=== PATIENT | female | born 1965 | race Caucasian/White ===

== ENCOUNTER 2018-01-31 20:14 | Inpatient (IN) | payer BC, MEDICARE, OTHER ==
[~2018-01-31] VITALS: Ht 160 cm; Wt 104.5 kg
[~2018-01-31 20:14] MED LIST: ALBU6.7H INH; ALPR-138 PO; CIPR500T2 PO; FIORTAB4 PO; LORT5TAB PO; METH2.5 PO; PRED20 PO; SOMA350T PO; TESS200C PO
[2018-01-31 20:25] VITALS: BP 121/55; PULSE 94; RESP 16; TEMP 98.4; O2SAT 97
--- NOTE | 2018-01-31 21:25 | PD ---
HPI Chief Complaint: Cardiac Complaint Time Seen by Provider: 21:13 Travel History International Travel<30 days: No Contact w/Intl Traveler<30days: No Traveled to known affect area: No History of Present Illness HPI 52-year-old female presents emergency department at the request of her taxicab dispatcher, Dr. Engle for evaluation of an abnormal loop recorder. Patient states that she has had this recorder placed for about 1 week after she was found to have a probable stroke on an MRI that was taken recently. Says she followed up in the taxicab dispatcher's office today about 1015 and the loop recorder did not show any abnormalities. according to patient, Dr. Engle's office told her that the loop recorder was demonstrating pauses up to 20 seconds at a time starting around 1149 this morning. Says she had an episode of syncope about a week ago and she went to the hospital for evaluation. Says she has persistent right chest wall pain but denies SOB. currently, she complains of excessive fatigue but says this is chronic at this point. She does not know she has sleep apnea however, neurologist suggests that she may have. According to Dr. Engle's office, there was an intent to place a pacemaker while in the hospital. PFSH Past Medical History Arthritis: Yes Asthma: Yes Anxiety: Yes (RA) Heart Rhythm Problems: No Cardiac Catheterization: Yes (pt states cath 5 yrs ago indicated blockage 40%- 50%) Cardiovascular Problems: Yes High Cholesterol: No Congestive Heart Failure: No Diabetes: No Diminished Hearing: No Hypertension: Yes Musculoskeletal: Yes (BACK PROBLEMS-CHRONIC BACK/NECK PAIN) Neurologic: No Respiratory: Yes (CHRONIC SINUSITIS) Integumentary: Yes (HAS HAD SKIN MRSA INFECTIONS) Myocardial Infarction: No Thyroid Disease: Yes : 1 Para: 1 Ovarian Cysts: Yes (JUNE - 2006) Tubal Ligation: Yes Past Surgical History Abdominal Surgery: Yes Appendectomy: Yes Coronary Artery Bypass Graft: No Hysterectomy: Yes (2004) Other Surgery: Yes (BREAST (ELECTIVE),08/2006) Social History Alcohol Use: No Tobacco Use: Yes (1 PPD) Substance Use: No Allergies-Medications (Allergen,Severity, Reaction): Coded Allergies: shellfish derived (Unverified Adverse Reaction, Severe, Hives, 01/31/18) Reported Meds & Prescriptions Reported Meds & Active Scripts Active Reported Lasix (Furosemide) 20 Mg Tab 30 Mg PO DAILY PRN Claritin (Loratadine) 10 Mg Cap 10 Mg PO DAILY Flexeril (Cyclobenzaprine HCl) 10 Mg Tab 10 Mg PO TID PRN Warfarin 2.5 Mg Tab 2.5 Mg PO DAILY Lisinopril 20 Mg Tab 20 Mg PO DAILY Percocet (Oxycodone-Acetaminophen) 10-325 mg Tab 1 Tab PO Q4H PRN Xanax (Alprazolam) 1 Mg Tab 1 Mg PO Q8H PRN Physical Exam Narrative GENERAL: Well-developed, well-nourished obese SKIN: Focused skin assessment warm/dry. HEAD: Atraumatic. Normocephalic. EYES: Pupils equal and round. No scleral icterus. No injection or drainage. ENT: No nasal bleeding or discharge. Mucous membranes pink and moist. NECK: Trachea midline. No JVD. No lymphadenopathy CARDIOVASCULAR: Regular rate and rhythm. No murmur appreciated. RESPIRATORY: No accessory muscle use. Clear to auscultation. Breath sounds equal bilaterally. GASTROINTESTINAL: Abdomen soft, non-tender, nondistended. No CVA tenderness MUSCULOSKELETAL: No obvious deformities. No clubbing. No cyanosis. No edema. NEUROLOGICAL: Awake and alert. No obvious cranial nerve deficits. Motor grossly within normal limits. Normal speech. PSYCHIATRIC: Appropriate mood and affect; insight and judgment normal. Data Data Last Documented VS Vital Signs Date Time Temp Pulse Resp B/P (MAP) Pulse Ox O2 Delivery O2 Flow Rate FiO2 01/31/18 22:01 88 Room Air 01/31/18 22:01 13 121/63 (82) 97 01/31/18 20:25 98.4 Orders Orders Electrocardiogram (01/31/18 ) B-Type Natriuretic Peptide (01/31/18 21:19) Ckmb (Isoenzyme) Profile (01/31/18 21:19) Complete Blood Count With Diff (01/31/18 21:19) Comprehensive Metabolic Panel (01/31/18 21:19) Magnesium (Mg) (01/31/18 21:19) Prothrombin Time / Inr (Pt) (01/31/18 21:19) Act Partial Throm Time (Ptt) (01/31/18 21:19) Troponin I (01/31/18 21:19) Chest, Single Ap (01/31/18 21:19) Iv Access Insert/Monitor (01/31/18 21:19) Ecg Monitoring (01/31/18 21:19) Oximetry (01/31/18 21:19) Oxygen Administration (01/31/18 21:19) Sodium Chloride 0.9% Flush (Ns Flush) (01/31/18 21:30) Place In Observation (01/31/18 ) Vital Signs (Adult) Q4H (01/31/18 22:58) Activity Oob With Assistance (01/31/18 22:58) Carpenters / Telemetry .CONTINUOUS (01/31/18 22:58) Diet Npo (02/01/18 Breakfast) Sodium Chloride 0.9% Flush (Ns Flush) (01/31/18 23:00) Sodium Chloride 0.9% Flush (Ns Flush) (02/01/18 09:00) Basic Metabolic Panel (Bmp) (02/01/18 06:00) Complete Blood Count With Diff (02/01/18 06:00) Case Management Consult (01/31/18 22:58) Naloxone Inj (Narcan Inj) (01/31/18 23:00) Consult Cardiology (01/31/18 ) Admit Order (Ed Use Only) (01/31/18 23:11) Labs Laboratory Tests Test 01/31/18 21:58 White Blood Count 7.1 TH/MM3 Red Blood Count 4.19 MIL/MM3 Hemoglobin 11.2 GM/DL Hematocrit 34.0 % Mean Corpuscular Volume 81.2 FL Mean Corpuscular Hemoglobin 26.8 PG Mean Corpuscular Hemoglobin Concent 33.0 % Red Cell Distribution Width 14.2 % Platelet Count 199 TH/MM3 Mean Platelet Volume 7.6 FL Neutrophils (%) (Auto) 55.0 % Lymphocytes (%) (Auto) 32.8 % Monocytes (%) (Auto) 9.2 % Eosinophils (%) (Auto) 2.8 % Basophils (%) (Auto) 0.2 % Neutrophils # (Auto) 3.9 TH/MM3 Lymphocytes # (Auto) 2.3 TH/MM3 Monocytes # (Auto) 0.7 TH/MM3 Eosinophils # (Auto) 0.2 TH/MM3 Basophils # (Auto) 0.0 TH/MM3 CBC Comment DIFF FINAL Differential Comment Prothrombin Time 12.8 SEC Prothromb Time International Ratio 1.3 RATIO Activated Partial Thromboplast Time 29.2 SEC Blood Urea Nitrogen 21 MG/DL Creatinine 0.68 MG/DL Random Glucose 151 MG/DL Total Protein 7.1 GM/DL Albumin 3.1 GM/DL Calcium Level 8.6 MG/DL Magnesium Level 2.0 MG/DL Alkaline Phosphatase 71 U/L Aspartate Amino Transf (AST/SGOT) 22 U/L Alanine Aminotransferase (ALT/SGPT) 30 U/L Total Bilirubin 0.2 MG/DL Sodium Level 137 MEQ/L Potassium Level 4.1 MEQ/L Chloride Level 95 MEQ/L Carbon Dioxide Level 35.3 MEQ/L Anion Gap 7 MEQ/L Estimat Glomerular Filtration Rate 92 ML/MIN Total Creatine Kinase 93 U/L Troponin I LESS THAN 0.02 NG/ML B-Type Natriuretic Peptide 21 PG/ML MDM Medical Decision Making Medical Screen Exam Complete: Yes Emergency Medical Condition: Yes Differential Diagnosis NSTEMI, angina, abnormal the precordial reading, fatigue Narrative Course 52-year-old female with a history of chronic back pain, rheumatoid arthritis, anxiety, and cervical degenerative disk disease presents emergency department at the request of her taxicab dispatcher, Dr. Engle for evaluation of an abnormal loop recorder. According to the patient the office suggested that she may have a pacemaker placed while in the hospital. Says she had the loop recorder placed after a CVA that was found on MRI earlier this month. She went to cardiology for her follow up appointment this morning around 1015a this morning and was told there was no abnormality. She then was called back and told to come to the ED for evaluation of 'pauses' on the loop recorder found around 1149a. Says she has had multiple presyncopal episodes this month with a syncopal episode resulting in hospital visit to [facility] just over 1 week ago. Currently she denies chest pain except for the existing right chest wall pain secondary to her fall from 1 week ago. Denies shortness of breath. EKG shows sinus rhythm at rate 91BPM Labs and imaging studies ordered. Vital Signs Date Time Temp Pulse Resp B/P (MAP) Pulse Ox O2 Delivery O2 Flow Rate FiO2 01/31/18 20:25 98.4 94 16 121/55 (77) [address] Engle who says she should stay for observation, NPO after midnight. Labs pending as of admission but will call if there are abnormalities in the results requiring attention. She was discussed with Dr. Floyd and admitted for observation. Physician Communication Physician Communication I spoke with Dr. Engle, her taxicab dispatcher whom suggested she be admitted for observation. He believes that her extended pauses on loop recorder may be vasovagal related but cannot completely rule out other etiologies. He suggested that she become n.p.o. after midnight for further evaluation in the morning. Diagnosis Primary Impression: Cardiac dysrhythmia Qualified Codes: I49.9 - Cardiac arrhythmia, unspecified Admitting Information Admitting Physician Requests: Observation Condition: Stable Toshia Howe Jan 31, 2018 21:25
[2018-01-31] MEDS ORDERED: SODIUM CHLORIDE 0.9% FLUSH 10 ML FLUSH IVF PRN (21:30)
[2018-01-31] MEDS ORDERED: CYCL10TA PO (21:48)
[2018-01-31] MEDS ORDERED: WARF-18 PO (21:48)
[2018-01-31] MEDS ORDERED: XANA1TAB2 PO (21:48)
[2018-01-31] MEDS ORDERED: CLAR10CA3 PO (21:48)
[2018-01-31] MEDS ORDERED: PERC10TA27 PO (21:48)
[2018-01-31] MEDS ORDERED: FURO1TAB62 PO (21:48)
[2018-01-31] MEDS ORDERED: LISI-515 PO (21:48)
[2018-01-31 22:01] VITALS: BP 121/63; PULSE 88; RESP 13; O2SAT 97
--- NOTE | 2018-01-31 22:08 | RADRPT ---
EXAM DATE/TIME: 01/31/2018 21:26 [place] COMPARISON: No previous studies available for comparison. INDICATIONS : Chest pain MEDICAL HISTORY : Hypertension. SURGICAL HISTORY : Loop recorder. ENCOUNTER: Initial ACUITY: 1 day PAIN SCORE: 8/10 LOCATION: Bilateral chest FINDINGS: A single view of the chest demonstrates the lungs to be symmetrically aerated without evidence of mas s, infiltrate or effusion. The cardiomediastinal contours are unremarkable. Osseous structures are intact. CONCLUSION: No acute disease. Alon Moraes MD on January 31, 2018 at 22:04 Board Certified Radiologist. This report was verified electronically.
[2018-01-31 22:32] LABS: AUTOMATED NEUTROPHIL # 3.9 TH/MM3 (1.8-7.7); BASOPHIL % 0.2 % (0.0-2.0); EOSINOPHIL # 0.2 TH/MM3 (0-0.4); EOSINOPHIL % 2.8 % (0.0-4.0); HEMOGLOBIN 11.2 GM/DL (11.6-15.3); LYMPH % 32.8 % (9.0-44.0); LYMPHOCYTE # 2.3 TH/MM3 (1.0-4.8); MEAN CELL VOLUME 81.2 FL (80.0-100.0); MEAN CORPUSCULAR HEMOGLOBIN 26.8 PG (27.0-34.0); MEAN PLATELET VOLUME 7.6 FL (7.0-11.0); MONO % 9.2 % (0.0-8.0); MONOCYTE # 0.7 TH/MM3 (0-0.9); PLATELET COUNT 199 TH/MM3 (150-450); RED BLOOD COUNT 4.19 MIL/MM3 (4.00-5.30); RED CELL DISTRIBUTION WIDTH 14.2 % (11.6-17.2); WHITE BLOOD COUNT 7.1 TH/MM3 (4.0-11.0)
[2018-01-31] MEDS ORDERED: SODIUM CHLORIDE 0.9% FLUSH 10 ML FLUSH IV FLUSH PRN (23:00)
[2018-01-31] MEDS ORDERED: NALOXONE HCL 0.4 MG/ML AMP IV PUSH PRN (23:00)
[2018-01-31 23:08] LABS: INTERNATIONAL NORMALIZED RATIO 1.3 RATIO; PROTHROMBIN TIME - PATIENT 12.8 SEC (9.8-11.6)
[2018-01-31 23:12] LABS: ALBUMIN 3.1 GM/DL (3.4-5.0); ALKALINE PHOSPHATASE 71 U/L (45-117); ALT (GPT) 30 U/L (10-53); AST (GOT) 22 U/L (15-37); BICARBONATE 35.3 MEQ/L (21.0-32.0); BLOOD UREA NITROGEN 21 MG/DL (7-18); CALCIUM 8.6 MG/DL (8.5-10.1); CHLORIDE 95 MEQ/L (98-107); CREATININE 0.68 MG/DL (0.50-1.00); GLOMERULAR FILTRATION RATE 92 ML/MIN (>89); GLUCOSE,RANDOM 151 MG/DL (74-106); SODIUM (NA) 137 MEQ/L (136-145); TOTAL BILIRUBIN ADULT 0.2 MG/DL (0.2-1.0); TOTAL PROTEIN 7.1 GM/DL (6.4-8.2); TROPONIN I LESS THAN 0.02 NG/ML (0.02-0.05)
[2018-01-31 23:50] VITALS: BP 136/63; PULSE 88; RESP 13; O2SAT 99
[2018-02-01] VITALS (7 sets, daily range): BP systolic 98–123; BP diastolic 54–63; PULSE 80–93; RESP 16–20; TEMP 90–98.4; O2SAT 18–98
[2018-02-01] MEDS ORDERED: FUROSEMIDE 20 MG TAB PO PRN (01:15)
[2018-02-01] MEDS ORDERED: ALPRAZolam 1 MG TAB PO PRN (01:15)
[2018-02-01] MEDS ORDERED: LISINOPRIL 20 MG TAB PO ONE (01:15)
[2018-02-01] MEDS ORDERED: CYCLOBENZAPRINE HCL 10 MG TAB PO PRN (01:15)
[2018-02-01] MEDS ORDERED: HEPARIN-D5W 25,000 U/250 ML 250 ML IV PRN (01:45)
[2018-02-01] MEDS ORDERED: RESP: ALBUTEROL 2.5 MG/IPRATROPIUM 0.5 MG NEB (PRN) NEB (02:45)
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
[2018-02-01] MEDS: HEPARIN 25,000 UNITS-D5W 250 ML - PREMIX IV PRN (03:21)
[2018-02-01] MEDS: oxyCODONE/ACETAMINOPHEN 10 MG/325 MG TAB PO PRN ×2 (03:54→13:14)
[2018-02-01] MEDS ORDERED: LISINOPRIL 20 MG TAB PO SCH (09:00)
[2018-02-01] MEDS: SODIUM CHLORIDE 0.9% FLUSH 10 ML FLUSH IV FLUSH SCH ×2 (10:03→23:46)
[2018-02-01] MEDS: LORATADINE 10 MG TAB PO SCH (10:03)
--- NOTE | 2018-02-01 10:05 | HHI.PR ---
Addendum to Inpatient Note Addendum Reason: Additional Documentation Additional Information Pt complains of chronic pain but not worsened. Denies any CP/palpitations/SOB/N/ V Tells me that she is scheduled for pacemaker placement later today On exam: laying in bed, HR rrr w no obvious murmurs. Lungs appear clear, abdomen soft NT no guarding or rebound, Moves extremities Mrs. Medley is a 52-year-old female with a complicated cardiovascular history including recent CVA 2 within the past couple of weeks (follows with Dr. Craft -on Coumadin), asthma with recent respiratory failure requiring BiPAP within the past couple of weeks, coronary artery disease status post stent placement, carotid artery disease status post left carotid endarterectomy, hypertension, and recent acute renal failure who presented to the ER on advice of cigar inspector for observation admission after 20 second pauses were noted on loop recording. Sinus pauses Cardiac dysrhythmia - NPO for pacemaker placement today - continuous cardiac telemetry to monitor for further dysrhythmia - Dr. Engle following. Recent CVA 2 - Hold Coumadin for permanent pacemaker placement - currently on heparin drip Asthma stable - Duonebs PRN Chronic back pain - on home percocet and flexeril Hypertension - on lisinopril and adjust medications according to bp trends Anemia, mild - Hgb 11.2 - monitor DVT prophylaxis - heparin gtt for now with transition back to coumadin once cleared by Antonia Wilcox MD Feb 01, 2018 10:05
--- NOTE | 2018-02-01 10:30 | MB ---
cc: Sourav Engle MD DATE: 02/01/2018 REASON FOR CONSULTATION: Evaluation of pauses on event recorder and cardiovascular status. HISTORY OF PRESENT ILLNESS: Selam Medley is a 52-year-old woman whom I have seen before, but it has been a couple of years. Both of her parents are patients of mine and she lives with her parents. She has a very complicated past medical history. The patient is known to have atherosclerotic disease. She had a stent of her right coronary artery on 09/07/2014, which was a 3.0 x 12 mm Resolute stent placed near the ostium. She has known carotid disease. She has had a previous left carotid endarterectomy on 12/08/2013 and she is known to have a totally occluded right internal carotid artery. She was hospitalized at the beginning of the month at [facility] for migraine headache and while there she had some chest pain. The chest pain she describes like a burst of pain; she had 2 episodes, one lasting 1 minute and one lasting 3-4 minutes. The pain was such that it made her want to stop and hold her breath. It was somewhat atypical. Dr. Stephens went ahead and performed a cardiac catheterization on 01/13/2018. Left main coronary artery was normal. Left anterior descending artery had 10-20% disease with bridging in the mid to distal LAD. Circumflex artery showed 10-20% disease of the first obtuse marginal branch. Right coronary artery showed a patent proximal stent and diffuse 20% mid disease. She was discharged from [facility] and then readmitted to [facility] for a stroke. MRI on 01/21/2018 showed multiple acute and subacute infarcts bilaterally in both parietal lobes and occipital lobes. She also had a tiny chronic cortical or subcortical stroke in the right posterior frontal lobe. She had multiple imaging studies. The only major finding was an occlusion of the right internal carotid artery which is a known finding. Since there was bilateral strokes, there was suspicion of cardiac emboli. A VLADIMIR was performed by Dr. Augustin which did not show any atrioseptal defect or PFO. EF was 60% with mild to moderate aortic regurgitation and mild mitral and tricuspid regurgitation. She was discharged home on warfarin. On 01/27/2018, her INR was 1.5. Her last INR was on Sunday. I do not have those results. Her INR here is only 1.3. What has provoked this admission is she has had syncope. She had syncope last Sunday night. She says she woke up, felt like a wave of nausea and dizziness lasting for just a moment and ended up on the floor. Family found her having sustained trauma and a bloody nose. Since her strokes she has described numbness in her left arm and leg, some difficulty with articulating words and some diminished balance. Her event recorder was placed only a couple weeks ago and those were faxed to my office yesterday and that showed 5 pauses, the longest of which was 20 seconds. Based on the pauses, she was instructed to come to the hospital and that is why she is here now. At the time I am seeing her, neurological symptoms are similar to what she has had. She has not had any typical angina. Her last episode of syncope was last Sunday night. MEDICATIONS: Charted. They include: 1. Lasix p.r.n. 2. Claritin 10 mg daily. 3. Flexeril 10 mg t.i.d. p.r.n. 4. Warfarin 2.5 mg daily. 5. Lisinopril 20 mg daily. 6. Percocet p.r.n. 7. Xanax p.r.n. PAST MEDICAL HISTORY: Includes coronary artery disease, carotid disease, strokes, degenerative joint disease, particularly of the spine with chronic back pain, mixed hyperlipidemia, metabolic syndrome, morbid obesity, peripheral arterial disease, prediabetes, possible rheumatoid arthritis, previous tobacco smoking, which she did not quit until 03/2014. PAST SURGICAL HISTORY: Includes her catheterization procedures, her left carotid endarterectomy, loop recorder implanted and her right coronary artery drug-eluting stent. SOCIAL HISTORY: She smoked from age 18 to age 49. She is . She lives with her Mom and Dad. REVIEW OF SYSTEMS: Significant also for some lower extremity edema. ALLERGIES: ATORVASTATIN. GEMFIBROZIL. LOVASTATIN. PRAVASTATIN. SHELLFISH. PHYSICAL EXAMINATION: GENERAL: Physical exam reveals a morbidly obese, but pleasant white female in no acute distress. VITAL SIGNS: Charted. HEENT: Unremarkable. NECK: Shows a diminished right carotid pulse. I do not hear a left carotid bruit. CHEST: Clear to auscultation. CARDIOVASCULAR EXAM: S1, S2. Regular rate and rhythm. There is a 1/6 systolic ejection murmur. ABDOMEN: Morbidly obese, soft, nontender. EXTREMITIES: No clubbing, cyanosis or edema. Peripheral pulses are intact. There is about 1+ peripheral edema. Chest x-ray is unremarkable. LABORATORY DATA: Charted: Creatinine is 0.68. Troponins less than 0.02. ASSESSMENT AND PLAN: 1. Syncope with prolonged pauses on cardiac event monitor. We will consult Dr. Fuentes for a pacemaker. 2. Coronary artery disease, presently stable. 3. Multiple strokes etiology of which is not clear. They are bilateral, but there is not any clear evidence for cardiac emboli. She has not had any fibrillation detected so far. 4. Morbid obesity with high cardiovascular risk. RECOMMENDATIONS: I am going to consult Dr. Fuentes and keep her n.p.o. for possible pacemaker later today. Her warfarin will need to be brought up to therapeutic but that can be done after her pacemaker. MD PAIGE Clayton/CARLOS , 09:41 AM , 10:28 AM
[2018-02-01 11:03] LABS: AUTOMATED NEUTROPHIL # 3.4 TH/MM3 (1.8-7.7); BASOPHIL % 0.4 % (0.0-2.0); EOSINOPHIL # 0.2 TH/MM3 (0-0.4); EOSINOPHIL % 3.2 % (0.0-4.0); HEMATOCRIT 33.5 % (35.0-46.0); HEMOGLOBIN 10.6 GM/DL (11.6-15.3); LYMPH % 36.2 % (9.0-44.0); LYMPHOCYTE # 2.4 TH/MM3 (1.0-4.8); MEAN CELL VOLUME 81.9 FL (80.0-100.0); MEAN CORPUSCULAR HEMOGLOBIN 25.9 PG (27.0-34.0); MEAN CORPUSCULAR HGB CONC 31.6 % (32.0-36.0); MEAN PLATELET VOLUME 7.6 FL (7.0-11.0); MONO % 9.1 % (0.0-8.0); MONOCYTE # 0.6 TH/MM3 (0-0.9); NEUT % 51.1 % (16.0-70.0); PLATELET COUNT 180 TH/MM3 (150-450); RED CELL DISTRIBUTION WIDTH 14.1 % (11.6-17.2); WHITE BLOOD COUNT 6.6 TH/MM3 (4.0-11.0)
[2018-02-01 11:26] LABS: BICARBONATE 38.4 MEQ/L (21.0-32.0); CALCIUM 8.8 MG/DL (8.5-10.1); CREATININE 0.59 MG/DL (0.50-1.00)
--- NOTE | 2018-02-01 20:36 | EKG ---
Date Performed: 01/31/2018 Time Performed: 20:56:11 PTAGE: 52 years EKG: Sinus rhythm NONSPECIFIC ST-T WAVE CHANGES NORMAL ECG NO PREVIOUS TRACING DOCTOR: Ander Vasquez Interpretating Date/Time 02/01/2018 20:34:54
[2018-02-01] MEDS: LISINOPRIL 20 MG TAB PO SCH (23:46)
[2018-02-02] VITALS (8 sets, daily range): BP systolic 87–141; BP diastolic 54–68; PULSE 80–102; RESP 15–24; TEMP 97.3–98.7; O2SAT 95–99
[2018-02-02] MEDS ORDERED: SODIUM CHLOR 0.9% 250 ML INJ 250 ML IV ONE (05:00)
[2018-02-02] MEDS: SODIUM CHLORIDE 0.9% FLUSH 10 ML FLUSH IV FLUSH SCH ×2 (09:00→20:10)
--- NOTE | 2018-02-02 10:17 | HHI.PR ---
Subjective Remarks Pt states that she is a bit frustrated because They couldn't perform the procedure yesterday because they didn't have an anesthesiologist and now she has to wait until sunday for it. Otherwise she does complains of some musculoskeletal pain 6/10 from the fall. Would like some pain meds. Denies any Chest pains, SOB, nausea or vomiting. Objective Vitals Vital Signs Date Time Temp Pulse Resp B/P (MAP) Pulse Ox O2 Delivery O2 Flow Rate FiO2 02/02/18 08:54 98.1 89 20 100/66 (77) 98 02/02/18 06:13 97.3 80 15 94/56 (69) 96 02/02/18 04:17 97.9 85 16 87/54 (65) 95 02/02/18 00:24 98.7 93 20 110/63 (79) 97 02/01/18 20:11 98.4 93 16 110/55 (73) 98 02/01/18 16:40 98.2 82 18 115/56 (75) 98 02/01/18 12:44 98.2 85 20 123/60 (81) 18 Result Diagram: 02/01/1846 02/01/1846 Imaging Last Impressions Chest X-Ray 01/31/182118 Signed Impressions: Service Date/Time: January 21:26 - CONCLUSION: No acute disease. Alon Moraes MD Objective Remarks CONSTITUTIONAL: This is a pleasant obese female patient, in no apparent distress. CARDIOVASCULAR: Regular rate and rhythm with II/ systolic murmur heard throughout precordial [place]. Patient with generalized edema (suspect secondary to steroids) RESPIRATORY: Clear to auscultation. Breath sounds equal bilaterally. No wheezes GASTROINTESTINAL: Abdomen soft, non-tender, nondistended. No guarding. MUSCULOSKELETAL:moves extremities. NEUROLOGICAL: Awake and alert. Motor and sensory grossly within normal limits. Normal speech. A/P Problem List: (1) Sinus pause ICD Code: I45.5 - Other specified heart block (2) Cardiac dysrhythmia ICD Code: I49.9 - Cardiac arrhythmia, unspecified Status: Acute Assessment and Plan Mrs. Medley is a 52-year-old female with a complicated cardiovascular history including recent CVA 2 within the past couple of weeks (follows with Dr. Craft -on Coumadin), asthma with recent respiratory failure requiring BiPAP within the past couple of weeks, coronary artery disease status post stent placement, carotid artery disease status post left carotid endarterectomy, hypertension, and recent acute renal failure who presented to the ER on advice of band tier for observation admission after 20 second pauses were noted on loop recording. Sinus pauses Cardiac dysrhythmia - pacemaker placement schedule on sunday - continuous cardiac telemetry to monitor for further dysrhythmia - Dr. Engle consulted Dr. Fuentes for pacemaker placement. Recent CVA 2 - Hold Coumadin for permanent pacemaker placement - currently on heparin drip due to procedure. Pt was subtherapeutic as well on admission Asthma stable - Duonebs PRN Chronic back pain - on home percocet and flexeril Hypertension - on lisinopril and adjust medications according to bp trends Anemia, mild - Hgb 11.2 - monitor DVT prophylaxis - heparin gtt for now with transition back to coumadin once cleared by cards Discharge Planning schedule for pacemaker for sunday Problem Qualifiers (1) Cardiac dysrhythmia: Qualified Codes: I49.9 - Cardiac arrhythmia, unspecified Antonia Orlelana MD Feb 02, 2018 10:17
[2018-02-02] MEDS: LORATADINE 10 MG TAB PO SCH (11:41)
[2018-02-02] MEDS: oxyCODONE/ACETAMINOPHEN 10 MG/325 MG TAB PO PRN ×2 (11:42→21:01)
--- NOTE | 2018-02-02 11:59 | PD.CARD.PN ---
Subjective Subjective Remarks Pt feels well, no events. Objective Medications Current Medications Medications (Trade) Dose Ordered Sig/Ruth Route Start Time Stop Time Status Last Admin (NS Flush) 2 ml UNSCH PRN IV FLUSH 01/31/18 23:00 (NS Flush) 2 ml BID IV FLUSH 02/01/18 09:00 02/02/18 09:00 (Narcan Inj) 0.4 mg UNSCH PRN IV PUSH 01/31/18 23:00 (Xanax) 1 mg Q8H PRN PO 02/01/18 01:15 (Flexeril) 10 mg TID PRN PO 02/01/18 01:15 (Lasix) 30 mg DAILY PRN PO 02/01/18 01:15 (Claritin) 10 mg DAILY PO 02/01/18 09:00 02/02/18 11:41 (Percocet 10-325 Mg) 1 tab Q4H PRN PO 02/01/18 01:15 02/02/18 11:42 (Prinivil) 20 mg HS PO 02/01/18 21:00 02/01/18 23:46 Heparin Sodium/ Dextrose 250 ml @ 18 mls/hr TITRATE PRN IV 02/01/18 02:15 02/01/18 03:21 (Duoneb Neb) 1 ampule Q4HR NEB PRN NEB 02/01/18 02:45 Vital Signs / I&O Vital Signs Date Time Temp Pulse Resp B/P (MAP) Pulse Ox O2 Delivery O2 Flow Rate FiO2 02/02/18 11:38 97.8 90 20 123/68 (86) 99 02/02/18 08:54 98.1 89 20 100/66 (77) 98 02/02/18 06:13 97.3 80 15 94/56 (69) 96 02/02/18 04:17 97.9 85 16 87/54 (65) 95 02/02/18 00:24 98.7 93 20 110/63 (79) 97 02/01/18 20:11 98.4 93 16 110/55 (73) 98 02/01/18 16:40 98.2 82 18 115/56 (75) 98 02/01/18 12:44 98.2 85 20 123/60 (81) 18 Physical Exam GENERAL: This is a well-nourished, well-developed patient, in no apparent distress. CARDIOVASCULAR: Regular rate and rhythm without murmurs, gallops, or rubs. RESPIRATORY: Clear to auscultation. Breath sounds equal bilaterally. No wheezes , rales, or rhonchi. GASTROINTESTINAL: Abdomen soft, non-tender, nondistended. Normal active bowel sounds MUSCULOSKELETAL: Extremities without clubbing, cyanosis, or edema. NEURO: Alert & Oriented x4 to person, place, time, situation. Moves all ext x4 Laboratory Laboratory Tests Test 02/01/18 13:25 Activated Partial Thromboplast Time 48.8 SEC Imaging Last Impressions Chest X-Ray 01/31/182118 Signed Impressions: Service Date/Time: January 21:26 - CONCLUSION: No acute disease. Alon Moraes MD Assessment and Plan Problem List: (1) Sinus pause ICD Codes: I45.5 - Other specified heart block Plan: plan for PPM by Dr. Fuentes Sunday, NPO past midnight sunday. Lamont Mackey MD Feb 02, 2018 11:59
--- NOTE | 2018-02-02 19:29 | EKG ---
Date Performed: 02/02/2018 Time Performed: 06:10:21 PTAGE: 52 years EKG: Sinus rhythm NORMAL ECG Since the PREVIOUS TRACING , no significant change noted PREVIOUS TRACIN01/31/2018 20.56 DOCTOR: Marielena Spaulding Interpretating Date/Time 02/02/2018 19:28:17
[2018-02-02] MEDS: HEPARIN 25,000 UNITS-D5W 250 ML - PREMIX IV PRN (20:04)
[2018-02-02] MEDS: LISINOPRIL 20 MG TAB PO SCH (23:37)
[2018-02-03] VITALS (11 sets, daily range): BP systolic 112–152; BP diastolic 57–95; PULSE 80–106; RESP 18–20; TEMP 97.8–98.5; O2SAT 96–99
[2018-02-03] MEDS: LORATADINE 10 MG TAB PO SCH (08:39)
[2018-02-03] MEDS: SODIUM CHLORIDE 0.9% FLUSH 10 ML FLUSH IV FLUSH SCH ×2 (08:39→20:31)
[2018-02-03] MEDS: oxyCODONE/ACETAMINOPHEN 10 MG/325 MG TAB PO PRN ×3 (08:40→22:51)
--- NOTE | 2018-02-03 10:08 | HHI.PR ---
Subjective Remarks no complaints, no chest pains, sob, nausea or vomiting. Objective Vitals Vital Signs Date Time Temp Pulse Resp B/P (MAP) Pulse Ox O2 Delivery O2 Flow Rate FiO2 02/03/18 09:09 97.9 98 20 140/80 (100) 96 02/03/18 03:50 98.1 89 18 143/89 (107) 96 02/03/18 00:05 98.5 95 18 112/57 (75) 96 02/02/18 20:24 98.0 102 18 108/64 (79) 97 02/02/18 15:21 98.0 92 24 141/67 (91) 99 02/02/18 12:47 20 02/02/18 11:38 97.8 90 20 123/68 (86) 99 I/O 02/02/18 02/02/18 02/02/18 02/03/18 02/03/18 02/03/18 07:00 15:00 23:00 07:00 15:00 23:00 # Voids 1 Result Diagram: 02/01/1846 02/01/18945 Imaging Last Impressions Chest X-Ray 01/31/182118 Signed Impressions: Service Date/Time: January 21:26 - CONCLUSION: No acute disease. Alon Moraes MD Objective Remarks CONSTITUTIONAL: This is a pleasant female patient, appears comfortable. CARDIOVASCULAR: Regular rate and rhythm with II/ systolic murmur heard RESPIRATORY: Clear to auscultation. Breath sounds equal bilaterally. No wheezes GASTROINTESTINAL: Abdomen soft, non-tender, nondistended. No guarding. MUSCULOSKELETAL:moves extremities. NEUROLOGICAL: Awake and alert. Motor and sensory grossly within normal limits. Normal speech. A/P Problem List: (1) Sinus pause ICD Code: I45.5 - Other specified heart block (2) Cardiac dysrhythmia ICD Code: I49.9 - Cardiac arrhythmia, unspecified Status: Acute Assessment and Plan Mrs. Medley is a 52-year-old female with a complicated cardiovascular history including recent CVA 2 within the past couple of weeks (follows with Dr. Craft -on Coumadin), asthma with recent respiratory failure requiring BiPAP within the past couple of weeks, coronary artery disease status post stent placement, carotid artery disease status post left carotid endarterectomy, hypertension, and recent acute renal failure who presented to the ER on advice of routing clerk for observation admission after 20 second pauses were noted on loop recording. Sinus pauses Cardiac dysrhythmia - pacemaker placement schedule for sunday - continuous cardiac telemetry to monitor for further dysrhythmia - Dr. Engle consulted Dr. Fuentes for pacemaker placement. Recent CVA 2 - Hold Coumadin for permanent pacemaker placement - currently on heparin drip for procedure. Pt was subtherapeutic as well on admission Asthma stable - Duonebs PRN Chronic back pain - on home percocet and flexeril Hypertension - on lisinopril and adjust medications according to bp trends Anemia, mild - Hgb 11.2 - monitor DVT prophylaxis - heparin gtt for now with transition back to coumadin once cleared by cards Discharge Planning schedule for pacemaker on sunday Problem Qualifiers (1) Cardiac dysrhythmia: Qualified Codes: I49.9 - Cardiac arrhythmia, unspecified Antonia Orellana MD Feb 03, 2018 10:08
[2018-02-03] MEDS ORDERED: PILL SPLITTER OTHER PRN (10:45)
--- NOTE | 2018-02-03 10:51 | PD.CARD.PN ---
Subjective Subjective Remarks Pt feels well, no events. Objective Medications Current Medications Medications (Trade) Dose Ordered Sig/Ruth Route Start Time Stop Time Status Last Admin (NS Flush) 2 ml UNSCH PRN IV FLUSH 01/31/18 23:00 (NS Flush) 2 ml BID IV FLUSH 02/01/18 09:00 02/02/18 20:10 (Narcan Inj) 0.4 mg UNSCH PRN IV PUSH 01/31/18 23:00 (Xanax) 1 mg Q8H PRN PO 02/01/18 01:15 (Flexeril) 10 mg TID PRN PO 02/01/18 01:15 (Lasix) 30 mg DAILY PRN PO 02/01/18 01:15 (Claritin) 10 mg DAILY PO 02/01/18 09:00 02/03/18 08:39 (Percocet 10-325 Mg) 1 tab Q4H PRN PO 02/01/18 01:15 02/03/18 08:40 (Prinivil) 20 mg HS PO 02/01/18 21:00 02/02/18 23:37 Heparin Sodium/ Dextrose 250 ml @ 18 mls/hr TITRATE PRN IV 02/01/18 02:15 02/02/18 20:04 (Duoneb Neb) 1 ampule Q4HR NEB PRN NEB 02/01/18 02:45 (Pill Splitter) 1 ea UNSCH PRN OTHER 02/03/18 10:45 Vital Signs / I&O Vital Signs Date Time Temp Pulse Resp B/P (MAP) Pulse Ox O2 Delivery O2 Flow Rate FiO2 02/03/18 09:09 97.9 98 20 140/80 (100) 96 02/03/18 03:50 98.1 89 18 143/89 (107) 96 02/03/18 00:05 98.5 95 18 112/57 (75) 96 02/02/18 20:24 98.0 102 18 108/64 (79) 97 02/02/18 15:21 98.0 92 24 141/67 (91) 99 02/02/18 12:47 20 02/02/18 11:38 97.8 90 20 123/68 (86) 99 I/O 02/02/18 02/02/18 02/02/18 02/03/18 02/03/1825/18 07:00 15:00 23:00 07:00 15:00 23:00 # Voids 1 Physical Exam GENERAL: This is a well-nourished, well-developed patient, in no apparent distress. CARDIOVASCULAR: Regular rate and rhythm 3/6 NIK, gallops, or rubs. RESPIRATORY: Clear to auscultation. Breath sounds equal bilaterally. No wheezes , rales, or rhonchi. GASTROINTESTINAL: Abdomen soft, non-tender, nondistended. Normal active bowel sounds MUSCULOSKELETAL: Extremities without clubbing, cyanosis, or edema. NEURO: Alert & Oriented x4 to person, place, time, situation. Moves all ext x4 Laboratory Laboratory Tests Test 02/02/18 18:05 02/02/18 22:31 Activated Partial Thromboplast Time 26.1 SEC 35.0 SEC Imaging Last Impressions Chest X-Ray 01/31/182118 Signed Impressions: Service Date/Time: January 21:26 - CONCLUSION: No acute disease. Alon Moraes MD Assessment and Plan Problem List: (1) Sinus pause ICD Codes: I45.5 - Other specified heart block Plan: plan for PPM by Dr. Fuentes Sunday, NPO past midnight sunday night. (2) Heart murmur ICD Codes: R01.1 - Cardiac murmur, unspecified Plan: Sounds louder than I recall from yesterday, she says she hasn't had an echo in the office; will order here. Lamont Mackey MD Feb 03, 2018 10:51
[2018-02-03] MEDS: HEPARIN 25,000 UNITS-D5W 250 ML - PREMIX IV PRN (11:44)
[2018-02-03] MEDS: LISINOPRIL 20 MG TAB PO SCH (20:31)
[2018-02-04] VITALS (9 sets, daily range): BP systolic 105–109; BP diastolic 65–72; PULSE 86–101; RESP 16–20; TEMP 97.4–98.9; O2SAT 97–99
[2018-02-04] MEDS: HEPARIN 25,000 UNITS-D5W 250 ML - PREMIX IV PRN (00:15)
[2018-02-04] MEDS ORDERED: LIDOCAINE HCL 2% 50 ML VIAL ONE (07:44)
[2018-02-04] MEDS ORDERED: VANCOMYCIN HCL 1000 MG VIAL ONE (07:44)
[2018-02-04] MEDS ORDERED: ceFAZolin INJ 1,000 MG VIAL ONE (07:44)
[2018-02-04] MEDS ORDERED: VANCOMYCIN 500 MG VIAL ONE (07:44)
[2018-02-04] MEDS ORDERED: SODIUM CHLOR 0.9% 250 ML INJ 250 ML ONE (07:45)
[2018-02-04] MEDS ORDERED: diphenhydrAMINE HCL 50 MG/ML VIAL ONE (08:21)
[2018-02-04] MEDS ORDERED: FAMOTIDINE 20 MG/2 ML VIAL ONE (08:22)
[2018-02-04] MEDS ORDERED: PROPOFOL 200 MG/20 ML AMP ONE (08:35)
[2018-02-04] MEDS ORDERED: MIDAZOLAM HCL 2 MG/2 ML VIAL ONE (08:51)
[2018-02-04] MEDS: LORATADINE 10 MG TAB PO SCH (09:00)
[2018-02-04] MEDS: SODIUM CHLORIDE 0.9% FLUSH 10 ML FLUSH IV FLUSH SCH ×2 (09:00→21:14)
--- NOTE | 2018-02-04 09:15 | CATHPROC ---
[employer] HIS Report Study Information Study Number Admission Scheduled Start Study Start [id number] Jan 31 2018 11:13PM 02/04/2018 02/04/2018 [place] Service Cardiac Pacer/ICD Admit Source Facility Department Emergency department [facility] - [facility] Physician and Clinical Staff Initial [place] [employer] Manager Autumn Gutiérrez,RT(R) TECH2 Other Anesthesia, WINCHER Recorder Adrien RN, Garrick Reyes,RT(R) Procedures Performed Procedure Location (Site) Vessel Name Lead Insertion Venogram Subclav. Vein (Lft Subclavian Vein Equipment Time Tour Actor Description Size Mfg Part Number Used/Scraped NEEDLE, PERCUTANEOUS ENTRY [id number] 08:28 COOK INC. 18G X 9.0CM Used 18G 9CM TW *[id number] DERMABOND, ADHESIVE SKIN [id number] 07:53 CORDIS/PACER * Used GLUE MINI *[id number] 07:53 Cantimer INDUSTRIES SUTURE, STRIP PLUS 1/2" * Used *[id number] 07:53 Cantimer PACER TUCKER, LIMB * 2530 *[id number] Used [id number] 07:53 Cantimer PACER PACK, PACER CUSTOM * Used *[id number] 07:53 SIM Digital MEDICAL PACER SAFE SHEATH, FR7, 13CM FR 7 [id number] Used 07:53 SIM Digital MEDICAL PACER SAFE SHEATH, FR7, 13CM FR 7 [id number] Used 07:57 Needle Sponge Count 2 22 Used 07:56 Needle Sponge Count 20 200 Used 07:56 Needle Sponge Count 4 4 Used 08:27 NYCOMED OMNIPAQUE, 350 MG, 50ML 50ML [id number] Used SUTURE, 0 ETHIBOND [CT1] (CX21D), 8pk SUTURE, 2-0 VICRYL [CT1] ([id number]) SUTURE, 2-0 VICRYL [CT1] (HVP021R) [id number] 07:53 [employer]DELL [employer] BLANKET,WARM AIR CCL * Used *[id number] [facility] PAD, ELECTROSURGICAL 07:53 * [id number] *[id number] Used SURGICAL GROUNDING ORANGE LEAD, CAPSURE FIX NOVUS, 4076-52CM 08:42 VITATRON MEDTRONIC 52CM Used 52CM *[id number] LEAD, CAPSURE FIX NOVUS, 4076-58CM 08:22 VITATRON MEDTRONIC 58CM Used 58CM *[id number] PACEMAKER, TIANNA GUTIERREZ 08:51 VITATRON MEDTRONIC OEA-DDDR [id number] Used SURESCAN [id number] 07:53 ZOLL MEDICAL EDWIN. / * Used *[id number] Equipment Model, Serial, Lot Number and Expiration Data Description Model Number Serial Number Lot Number Expiration Date LEAD, CAPSURE FIX NOVUS, 52CM 4076-52CM [id number] 07-27-2018 LEAD, CAPSURE FIX NOVUS, 58CM 4076-58cm [id number] 10-12-2019 PACEMAKER, TIANNA GUTIERREZ [id number] 04-25-2019 SURESCAN History: Current Medications Medication Dosage/Unit Route Frequency Last Date/Time Taken Coumadin LASIX LISINOPRIL Xanax History: Allergies Allergy Reaction shellfish derived Hives History: Risk Factors Hypertension Yes Prior Valve Prior PCI Prior PCIDate Prior CABG Surgery No Yes 08/12/2014 No Cerebrovascular Disease Yes History: Symptoms/Diagnosis Selection Items Chest pain Syncope History: Other Disease Selection Items CAD Renal Failure/Insufficiency History: Other Current Smoker Method Quit Packs a Day Years Used Pack Years No Cigarettes 3 Years Ago 2 15 30 Labs Hgb (g/dl) Hct (%) WBC (l/cumm) Platelets (thousands) 11.60-17.00 35.00-51.00 4.00-11.00 150.00-450.00 10.6 33.5 6.6 180 Glucose (mg/dl) BUN (mg/dl) Creatinine (mg/dl) BUN:Creatinine (1:x) 74.00-106.00 7.00-18.00 0.50-1.30 10.00-20.00 105 17 0.5 34 Na (meq/l) K (meq/l) Cl (meq/l) CO2 (mmol/L) Ca (mg/dl) 136.00-145.00 3.50-5.10 98.00-107.00 21.00-32.00 8.50-10.10 139 4.1 97 38.4 8.8 Troponin I (ng/ml) CPK (u/l) CPK-MB (ng/ML) 0.02-0.05 26.00-308.00 0.50-3.60 0.02 93 Not Drawn Medication Medication Total Dose (Bolus/Oral) Medication Total Dosage/Unit 2% XYLOCAINE 30 mL Medications (Bolus/Oral) Medication Time Given Dosage/Unit Administered By Reason 2% XYLOCAINE 02/04/2018 8:16:31 AM 30 mL Chano Fuentes 30 mL 2% XYLOCAINE given in lab by Chano Fuentes in Left shoulder via Subcutaneous. Ordered by Chano Fuentes. Medication (Drip) Medication Time Given Dosage/Unit Concentration/Unit Diluent (ml) Solution ANCEF 02/04/2018 7:53:12 AM 2 g 2 g ANCEF given in lab by Anesthesia, WINCHER in Left Antecubital via Peripheral IV. Ordered by Goldy Fuentes. IV Solutions 02/04/2018 7:43:45 AM 0 mL (IV) 500 NaCl .9 Patient arrived on IV Solutions in Left Antecubital via Peripheral IV. Pump/Drip Flow = 20 ml/hr usin g NaCl .9. IV Solutions 02/04/2018 7:43:46 AM 0 mL (IV) 500 NaCl .9 Patient arrived on IV Solutions in Left Forearm via Peripheral IV. Pump/Drip Flow = 20 ml/hr using Na Cl .9. VANCOMYCIN DRIP 02/04/2018 7:55:21 AM 1 g 1 g VANCOMYCIN DRIP given in lab by Anesthesia, WINCHER via Peripheral IV. Ordered by Chano Fuentes. Chronological Log Time Study Chronological Log 7:30:54 Patient arrived via Bed. 7:30:54 Patient Name, D.O.B, / Armband Verified By R.N. 7:31:00 Anesthesia at bedside. Assumes care of patient. 7:31:01 Presedation assessment performed by [facility] RN. 7:31:06 Victor Manuel Prominences Protected 7:31:57 Pre-op and post- op instructions given; patient acknowledges understanding of instructions . 7:32:58 Verbal Stimulation=2 Physical Stimulation=2 Airway=2 Respiration=2 TOTAL=8. (0=absent, 1=l imited, 2=present) 7:35:03 Patient has been NPO for More than 6Hrs. 7:35:11 Disposable Defibrillator Pads Placed On Patient. 7:35:16 Bovie ground pad applied to: right upper thigh 7:35:50 Disposable Defibrillator Pads Placed On Patient. 7:41:04 Skin Breakdown- 7:41:18 2% CHLORHEXIDINE GLUCONATE WASH AND NASAL SWIPE DONE PRIOR TO PROCEDURE. 7:43:44 A # 18 IV was noted in the Antecubital (left). Grade = 0 7:43:45 Patient arrived on IV Solutions in Left Antecubital via Peripheral IV. Pump/Drip Flow = 20 ml/hr using NaCl .9. 7:43:45 A # 20 IV was noted in the Forearm (left). Grade = patent 7:43:46 Patient arrived on IV Solutions in Left Forearm via Peripheral IV. Pump/Drip Flow = 20 ml/ hr using NaCl .9. 7:43:47 History and physical on the chart or being dictated. 7:43:50 Table restraints applied according to hospital policy 7:43:54 Left Upper Chest Prepped Times Two. 7:44:32 HR=96 bpm, ZRRB=736/77 mmhg, JxY0=350 %, Resp=24 B/min 7:53:12 2 g ANCEF given in lab by Anesthesia, WINCHER in Left Antecubital via Peripheral IV. Ordered by Chano Funetes. 7:54:21 Reference ECG taken 7:55:21 1 g VANCOMYCIN DRIP given in lab by Anesthesia, WINCHER via Peripheral IV. Ordered by Javier Fuentes. First Sponge And Instrument Count Done by Garrick Santo, RT(R). 7:55:47 Hypo's: 4, Sponges: 20, Bovie/scratch: 2 Sutures: 10, Blades: 1, Instruments: 26, Syveck Patches: 0 7:59:46 MD paged 8:10:47 MD arrived. Time Out. Correct patient, procedure, procedure equipment, site and side verified with physician present. Time 8:15:00 concurred by MD, individual staff and WINCHER. Time Out #2 - Consents verified, patient in correct position, all results are labled and display ed, safety precautions 8:15:05 taken, antibiotics administered. Time out concurred by , individual staff and WINCHER in procedur e 8:16:11 Case Start 8:16:31 30 mL 2% XYLOCAINE given in lab by Chano Fuentes in Left shoulder via Subcutaneous. Ordered by Chano Fuentes. 8:25:32 The Subclav. Vein (Lft was manually injected with 20 cc's of contrast. OMNIPAQUE, 350 MG, 50 ML 50ML used. 8:28:10 The Subclav. Vein (Lft was manually injected with 20 cc's of contrast. OMNIPAQUE, 350 MG, 50 ML 50ML used. 8:30:32 The Subclav. Vein (Lft was manually injected with 20 cc's of contrast. OMNIPAQUE, 350 MG, 50 ML 50ML used. 8:34:15 The Subclav. Vein (Lft was manually injected with 20 cc's of contrast. OMNIPAQUE, 350 MG, 50 ML 50ML used. 8:34:46 Vascular access was obtained in the Subclav. Vein (Lft. 8:35:10 Vascular access was obtained in the Subclav. Vein (Lft. 8:35:41 Surgical Incision Made. 8:36:32 A pocket was created at the L Upper Chest. 8:38:16 A SAFE SHEATH, FR7, 13CM FR 7 was advanced into the Subclav. Vein (Lft using the Modified Se ldinger technique. 8:38:52 A LEAD, CAPSURE FIX NOVUS, 58CM 58CM was inserted and positioned in the RV. 8:40:06 Lead placement verified under fluoroscopy 8:40:08 The RV lead impedance and threshold being tested. 8:40:17 7 fr SAFE SHEATH REMOVED 8:43:35 The RV lead was sutured to the fascia. 8:43:43 A SAFE SHEATH, FR7, 13CM FR 7 was advanced into the Subclav. Vein (Lft using the Modified Se ldinger technique. 8:44:09 A LEAD, CAPSURE FIX NOVUS, 52CM 52CM was inserted and positioned in the RA. 8:44:19 The Atrial lead impedance and threshold is being tested. 8:46:53 7 FR SAFE SHEATH REMOVED 8:47:18 The Atrial lead was sutured to the fascia. 8:47:49 Pocket flushed with antibiotic solution 8:48:46 A PPM Implant . (Dual) 8:49:07 A Loop Recorder Removed . 8:49:35 Implant Procedure was performed. 8:49:57 DOCU CALLED TO SET UP PT TRANSFER TO [facility]. SPOKE WITH CARMEN 8:50:05 A PACEMAKER, TIANNA MURPHY OEA-DDDR was connected and placed in the pocket. Second Sponge And Instrument Count Done by Chano Fuentes. 8:52:00 Hypo's:4 hypo's, Sponges:20 sponges, Bovie/scratch: 1 bovie/ 1 scratch Sutures:10, Blades:1 8:53:14 The pocket IS BEING closed. 8:55:43 Loop Recorder Removed. 8:56:00 Case End 8:56:03 Bedside Report will be given. 8:59:23 Steri-strips and a sterile dressing applied to site. The Final Sponge And Instrument Count Done by Chano Fuentes. 8:59:26 Hypo's:4 hypo's, Sponges:20 sponges, Bovie/scratch:1 bovie/ 1 scratch Sutures: 10, Blades: 1, Instruments: 26 9:00:39 Sterile dressing applied to site 9:00:44 Bedside Report will be given. 9:01:37 DOCU called. Spoke to CARMEN 9:14:58 No case complications noted. 9:15:03 A sling was placed on the affected arm. 9:15:10 Bedside Report will be given. 9:15:16 Implantable Device card placed in patient's chart. 9:15:20 Patient moved to [facility] [place] End Study - Contrast Media Used In Study Contrast Total Opened (mL) Total Used (mL) Total Wasted (mL) Omnipaque 100 80 20 End Study - Maximum Contrast Load Max Contrast Load (mL) 1064.1 End Study - Radiation Exposure Fluoro Time (minutes) 11.0 End Study - Patient Disposition Complications Transferred To [facility]
[2018-02-04] MEDS: oxyCODONE/ACETAMINOPHEN 10 MG/325 MG TAB PO PRN ×3 (09:34→17:16)
[2018-02-04] MEDS ORDERED: PROPOFOL 200 MG/20 ML AMP IV ONE (12:00)
[2018-02-04] MEDS ORDERED: LIDOCAINE HCL 1% PF 5 ML SYRINGE OTHER ONE (12:00)
[2018-02-04] MEDS ORDERED: SODIUM CHLORIDE 0.9% 20 ML VIAL IV ONE (12:00)
--- NOTE | 2018-02-04 12:11 | MB ---
cc: Chano Fuentes MD,Sourav Toribio MD DATE: 02/04/2018 Electrophysiology Consult REASON FOR CONSULTATION: Symptomatic bradycardia, multiple pauses. I was called by Dr. Engle about Ms. Medley. HISTORY OF PRESENT ILLNESS: She is a 52-year-old female with history of coronary artery disease. She has previous stent. She has left carotid endarterectomy. She has severe morbid obesity. She episode of syncope. The loop recorder was inserted. Multiple pauses were found and they were symptomatic. The patient was admitted for evaluation and management. The chart was reviewed. The patient was evaluated. ALLERGIES: SHELLFISH, ATORVASTATIN, GEMFIBROZIL, LOVASTATIN, PRAVASTATIN. SOCIAL HISTORY: Negative for smoking or drinking. The patient stopped smoking around 2 years ago. FAMILY HISTORY: Noncontributory to her current medical condition. MEDICATIONS: She is on Lasix, Claritin, Flexeril, Coumadin, lisinopril, Percocet, Xanax. REVIEW OF SYSTEMS: She referred no chest pain, episode on and off dizziness and syncope. No fever. PHYSICAL EXAMINATION: GENERAL: Alert, fully oriented, obese. VITAL SIGNS: Blood pressure on evaluation 122/60, pulse 85, respiratory rate 18. LUNGS: Ventilated. CARDIOVASCULAR: S1, S2. Regular. Distant heart sounds. ABDOMEN: Obese. No mass. No bruits. EXTREMITIES: No edema. The patient has a very short neck. LABORATORY DATA: Electrocardiogram shows sinus rhythm. No acute ST and T-wave changes. Hemoglobin 10.6, white blood cells 6.6. Potassium 4.1, creatinine 0.59. INR 1.3. ASSESSMENT AND RECOMMENDATIONS: Ms. Medley has multiple significant pauses. She is symptomatic. She has a loop recently implanted by Dr. Engle. She is going to need a permanent pacemaker. The risks, the nature and the benefits of the procedure were clearly stated to her. The risks include pneumothorax, cardiac perforation, stroke and even . The patient understood and agreed to proceed. Procedure will be scheduled. Chano Fuentes MD HS/TL/rr , 09:17 AM , 09:48 AM
--- NOTE | 2018-02-04 12:34 | MP ---
cc: Chano Fuentes MD DATE OF OPERATION: INDICATIONS FOR PROCEDURE: Mrs. Nunn is a 52-year-old female with a history of near-syncope, multiple pauses on loop recorder. She has a history also of coronary artery disease, morbid obesity, will undergo permanent pacemaker insertion. Patient was symptomatic. As mentioned before, multiple pauses were observed. The risks, the nature, and the benefits of the procedure were clearly stated to her. Risks include pneumothorax, cardiac perforation, stroke, need for open heart surgery, and even . The patient consented and agreed to proceed. PROCEDURE: After an informed consent was obtained, the patient was brought to the EP lab, where she was prepped and draped in the usual sterile fashion. Conscious sedation was initiated and maintained throughout the procedure by anesthesiologist. Once sedation verified, the left infraclavicular area was anesthetized with 2% Xylocaine. Using modified Seldinger technique contrast injection via the left antecubital vein, the left subclavian vein was cannulated on 2 occasions. Two guidewires were advanced. This is a very obese patient. Access was very difficult. It took us 30 minutes to get access. Then, using a #11 blade scalpel, a 3 cm incision was made 2 fingerbreadths below the left clavicle. This incision was taken down to the fascial layer using Bovie cautery and blunt dissection. device pocket was dissected, then the wire was dissected into the pocket. A 2-0 Vicryl suture was placed around the wires with good backbleeding. At this point, over the lateral wire, a 7-Ukrainian dilator and introducer was advanced. As dilator and wire were removed, an active fixation right ventricular pacing/sensing lead was advanced. After adequate pacing and sensing thresholds obtained, the lead was secured in the pocket using #2 Ethibond suture. Then, over the remaining wire, a 7-Ukrainian dilator and introducer was advanced. Dilator and wire were removed and an active fixation right atrial pacing and sensing lead was advanced. After adequate pacing and sensing thresholds obtained, the lead was secured in the pocket with #2 Ethibond suture. At that point, the pocket was copiously irrigated solution. The leads were connected to the generator and placed into the pocket. I then proceeded with wound closure. The deep fascial layer was approximated with 2-0 Vicryl suture in a continuous fashion. The subcutaneous layer was approximated using #2-0 Vicryl suture in a continuous fashion. The subcuticular layer was approximated using #2-0 Vicryl suture in a continuous fashion. Dermabond adhesive was applied to the wound, followed by a sterile pressure dressing. At that point, I proceeded to loop recorder removal. Less than a centimeter incision was made. The area was previously anesthetized with anesthesia using 2% Xylocaine. Then, incision was then taken down to the fascial layer using Bovie cautery and blunt dissection. Once exposed, loop recorder was removed. No incident to report. Patient tolerated the procedure. Blood loss minimal. 1. EXPLANTED HARDWARE: Explanted loop recorder is a Medtronic model number LNQ #11, serial number [id number]. 2. IMPLANTED HARDWARE: Implanted pacemaker is a Medtronic model #ADDR01, serial #[id number]. The right atrial pacing system is a Medtronic model number 4076-52, serial number [id number]. The left ventricular pacing/sensing is a Medtronic model number 4076-58, serial number [id number]. 3. THRESHOLD: The right atrial pacing threshold in bipolar mode was 1.4 volts at 0.5 milliseconds, lead impedance 900 ohms at 2.6 millivolts. The right ventricular pacing threshold in bipolar mode was 0.7 volts at 0.5 milliseconds. Lead impedance 250 ohms, R-wave at 18.2 millivolts. 4. SETTINGS: The device set in the DDD50, upper rate limit 130 beats per minute. CONCLUSION: Successful pacemaker insertion. RECOMMENDATION: The patient is going to be transferred to the telemetry unit. He will be observed. When stable, can be discharged home. Chano Fuentes MD HS/TI , 09:13 AM , 10:32 AM
[2018-02-04] MEDS ORDERED: IODIXANOL 320 MG/ML 100 ML VIAL (for EPS) OTHER ONE (13:32)
--- NOTE | 2018-02-04 16:08 | HHI.PR ---
Subjective Remarks c/o nausea but no vomiting pain in left chest at site of PM implantation very tender and painful, po meds not enough as per pt afebrile Denies sob Objective Vitals Vital Signs Date Time Temp Pulse Resp B/P (MAP) Pulse Ox O2 Delivery O2 Flow Rate FiO2 02/04/18 09:24 97 Room Air 02/04/18 04:09 97.4 86 20 105/66 (79) 99 02/04/18 03:42 90 02/03/18 23:43 94 02/03/18 23:05 97.9 90 18 132/95 (107) 97 02/03/18 19:58 97.8 106 18 152/79 (103) 99 02/03/18 16:51 98.2 88 20 128/60 (82) 98 I/O 02/03/18 02/03/18 02/03/18 02/04/18 02/04/18 02/04/18 07:00 15:00 23:00 07:00 15:00 23:00 Intake Total 250 ml 126 ml Balance 250 ml 126 ml Intake IV Total 250 ml 126 ml # Voids 2 2 Result Diagram: 02/01/1846 02/01/1846 Imaging Last Impressions Chest X-Ray 01/31/182118 Signed Impressions: Service Date/Time: January 21:26 - CONCLUSION: No acute disease. Alon Moraes MD Objective Remarks AAox3 Tenederness over left chest on palpation Clear lungs BL S1S2 RRR, no MRg no edema in extremities Medications and IVs Current Medications Medications (Trade) Dose Ordered Sig/Ruth Route Start Time Stop Time Status Last Admin (NS Flush) 2 ml UNSCH PRN IV FLUSH 01/31/18 23:00 (NS Flush) 2 ml BID IV FLUSH 02/01/18 09:00 02/04/18 09:00 (Narcan Inj) 0.4 mg UNSCH PRN IV PUSH 01/31/18 23:00 (Xanax) 1 mg Q8H PRN PO 02/01/18 01:15 (Flexeril) 10 mg TID PRN PO 02/01/18 01:15 (Lasix) 30 mg DAILY PRN PO 02/01/18 01:15 (Claritin) 10 mg DAILY PO 02/01/18 09:00 02/03/18 08:39 (Percocet 10-325 Mg) 1 tab Q4H PRN PO 02/01/18 01:15 02/04/18 13:33 (Prinivil) 20 mg HS PO 02/01/18 21:00 02/03/18 20:31 Heparin Sodium/ Dextrose 250 ml @ 18 mls/hr TITRATE PRN IV 02/01/18 02:15 02/04/18 00:15 (Duoneb Neb) 1 ampule Q4HR NEB PRN NEB 02/01/18 02:45 (Pill Splitter) 1 ea UNSCH PRN OTHER 02/03/18 10:45 A/P Problem List: (1) Sinus pause ICD Code: I45.5 - Other specified heart block (2) Cardiac dysrhythmia ICD Code: I49.9 - Cardiac arrhythmia, unspecified Status: Acute Assessment and Plan sp PM placement monitor on telemetry will Rx ambien for insomnia, Zofran for nausea and add Morphine for brakthrough pain Resume coumadin as per cardiology Discharge Planning Pending cardiology clearance Problem Qualifiers (1) Cardiac dysrhythmia: Qualified Codes: I49.9 - Cardiac arrhythmia, unspecified Lennox Esquivel MD Feb 04, 2018 16:08
[2018-02-04] MEDS ORDERED: ZOLPIDEM TARTRATE 5 MG TAB PO PRN (16:30)
[2018-02-04] MEDS ORDERED: ONDANSETRON HCL 4 MG/2 ML VIAL IV PUSH PRN (16:30)
--- NOTE | 2018-02-04 16:30 | HHI.PR ---
Objective Vitals Vital Signs Date Time Temp Pulse Resp B/P (MAP) Pulse Ox O2 Delivery O2 Flow Rate FiO2 02/04/18 09:24 97 Room Air 02/04/18 04:09 97.4 86 20 105/66 (79) 99 02/04/18 03:42 90 02/03/18 23:43 94 02/03/18 23:05 97.9 90 18 132/95 (107) 97 02/03/18 19:58 97.8 106 18 152/79 (103) 99 02/03/18 16:51 98.2 88 20 128/60 (82) 98 I/O 02/03/18 02/03/18 02/03/18 02/04/18 02/04/18 02/04/18 07:00 15:00 23:00 07:00 15:00 23:00 Intake Total 250 ml 126 ml Balance 250 ml 126 ml Intake IV Total 250 ml 126 ml # Voids 2 2 Result Diagram: 02/01/18 0946 02/01/18 0946 A/P Problem List: (1) Sinus pause ICD Code: I45.5 - Other specified heart block (2) Cardiac dysrhythmia ICD Code: I49.9 - Cardiac arrhythmia, unspecified Status: Acute Problem Qualifiers (1) Cardiac dysrhythmia: Qualified Codes: I49.9 - Cardiac arrhythmia, unspecified Lennox Esquivel MD Feb 04, 2018 16:30
[2018-02-04] MEDS: LISINOPRIL 20 MG TAB PO SCH (21:14)
[2018-02-04] MEDS: MORPHINE SULFATE 2 MG/ML INJ IV PUSH PRN (21:15)
[2018-02-05] VITALS (13 sets, daily range): BP systolic 91–102; BP diastolic 50–55; PULSE 85–107; RESP 16–18; TEMP 97.9–98.5; O2SAT 94–98
[2018-02-05] MEDS: MORPHINE SULFATE 2 MG/ML INJ IV PUSH PRN (00:54)
[2018-02-05] MEDS: oxyCODONE/ACETAMINOPHEN 10 MG/325 MG TAB PO PRN ×2 (03:49→08:04)
[2018-02-05 05:13] LABS: HEMATOCRIT 34.8 % (35.0-46.0); HEMOGLOBIN 11.2 GM/DL (11.6-15.3); MEAN CELL VOLUME 79.9 FL (80.0-100.0); MEAN CORPUSCULAR HEMOGLOBIN 25.8 PG (27.0-34.0); MEAN CORPUSCULAR HGB CONC 32.3 % (32.0-36.0); MEAN PLATELET VOLUME 7.5 FL (7.0-11.0); PLATELET COUNT 202 TH/MM3 (150-450); RED BLOOD COUNT 4.35 MIL/MM3 (4.00-5.30); RED CELL DISTRIBUTION WIDTH 14.1 % (11.6-17.2); WHITE BLOOD COUNT 6.5 TH/MM3 (4.0-11.0)
--- NOTE | 2018-02-05 07:36 | PD.CARD.PN ---
Subjective Subjective Remarks Feels okay. Objective Medications Current Medications Medications (Trade) Dose Ordered Sig/Ruth Route Start Time Stop Time Status Last Admin (NS Flush) 2 ml UNSCH PRN IV FLUSH 01/31/18 23:00 (NS Flush) 2 ml BID IV FLUSH 02/01/18 09:00 02/04/18 21:14 (Narcan Inj) 0.4 mg UNSCH PRN IV PUSH 01/31/18 23:00 (Xanax) 1 mg Q8H PRN PO 02/01/18 01:15 (Flexeril) 10 mg TID PRN PO 02/01/18 01:15 (Lasix) 30 mg DAILY PRN PO 02/01/18 01:15 (Claritin) 10 mg DAILY PO 02/01/18 09:00 02/03/18 08:39 (Percocet 10-325 Mg) 1 tab Q4H PRN PO 02/01/18 01:15 02/05/18 03:49 (Prinivil) 20 mg HS PO 02/01/18 21:00 02/04/18 21:14 Heparin Sodium/ Dextrose 250 ml @ 18 mls/hr TITRATE PRN IV 02/01/18 02:15 02/04/18 00:15 (Duoneb Neb) 1 ampule Q4HR NEB PRN NEB 02/01/18 02:45 (Pill Splitter) 1 ea UNSCH PRN OTHER 02/03/18 10:45 (Zofran Inj) 4 mg Q6HR PRN IV PUSH 02/04/18 16:30 (Ambien) 5 mg HS PRN PO 02/04/18 16:30 (Morphine Inj) 2 mg Q3H PRN IV PUSH 02/04/18 16:30 02/05/18 00:54 (Coumadin) 2.5 mg DAILY@1600 PO 02/05/18 16:00 Vital Signs / I&O Vital Signs Date Time Temp Pulse Resp B/P (MAP) Pulse Ox O2 Delivery O2 Flow Rate FiO2 02/05/18 07:00 91 02/05/18 06:00 94 02/05/18 05:44 16 02/05/18 05:00 94 02/05/18 04:00 96 02/05/18 03:41 14 02/05/18 03:00 97.9 92 16 91/50 (64) 96 02/05/18 03:00 94 02/05/18 02:00 96 02/05/18 01:00 94 02/05/18 00:00 92 02/04/18 23:00 98.3 94 16 109/72 (84) 97 02/04/18 23:00 94 02/04/18 22:00 96 02/04/18 21:00 98 02/04/18 20:06 97 02/04/18 20:00 98 02/04/18 19:50 95 02/04/18 19:40 98.9 101 18 107/65 (79) 98 02/04/18 09:24 97 Room Air I/O 02/04/18 02/04/18 02/04/18 02/05/18 02/05/18 02/05/18 07:00 15:00 23:00 07:00 15:00 23:00 Intake Total 126 ml 300 ml Output Total 1000 ml Balance 126 ml -700 ml Intake Oral 300 ml IV Total 126 ml Output Urine Total 1000 ml # Voids 1 1 Physical Exam GENERAL: Well-nourished, well-developed patient. SKIN: Warm and dry. Chest wall incision well approximated without erythema or drainage. HEAD: Normocephalic. EYES: No scleral icterus. No injection or drainage. NECK: Supple, trachea midline. No JVD or lymphadenopathy. CARDIOVASCULAR: Regular rate and rhythm without murmurs, gallops, or rubs. RESPIRATORY: Breath sounds equal bilaterally. No accessory muscle use. GASTROINTESTINAL: Abdomen soft, non-tender, nondistended. EXTREMITIES: No cyanosis, or edema. NEUROLOGICAL: Awake, alert, and oriented x 3. Non-focal. Laboratory Laboratory Tests Test 02/05/18 04:11 White Blood Count 6.5 TH/MM3 Red Blood Count 4.35 MIL/MM3 Hemoglobin 11.2 GM/DL Hematocrit 34.8 % Mean Corpuscular Volume 79.9 FL Mean Corpuscular Hemoglobin 25.8 PG Mean Corpuscular Hemoglobin Concent 32.3 % Red Cell Distribution Width 14.1 % Platelet Count 202 TH/MM3 Mean Platelet Volume 7.5 FL Activated Partial Thromboplast Time 23.2 SEC Imaging Last Impressions Chest X-Ray 01/31/182118 Signed Impressions: Service Date/Time: January 21:26 - CONCLUSION: No acute disease. Alon Moraes MD Assessment and Plan Problem List: (1) Sinus pause ICD Codes: I45.5 - Other specified heart block Plan: Multiple pauses seen on loop recorder. Pacing appropriately this morning. (2) S/P cardiac pacemaker procedure ICD Codes: Z95.0 - Presence of cardiac pacemaker Plan: Stable status post implantation of dual-chamber Medtronic pacemaker. Chest x-ray this morning, if stable, can be discharged home from EP standpoint with Dr. Fuentes's permanent pacemaker discharge instructions. Follow-up with Dr. Fuentes in 2 weeks per my discussion with him. Tabatha Dodd Feb 05, 2018 07:36
[2018-02-05] MEDS: LORATADINE 10 MG TAB PO SCH (08:03)
[2018-02-05] MEDS: SODIUM CHLORIDE 0.9% FLUSH 10 ML FLUSH IV FLUSH SCH (08:03)
[2018-02-05] MEDS ORDERED: CEPH500C PO (09:04)
--- NOTE | 2018-02-05 09:06 | HHI.DCPOC ---
Discharge Care Plan Diagnosis: (1) Cardiac dysrhythmia (2) Sinus pause (3) Heart murmur (4) S/P cardiac pacemaker procedure Goals to Promote Your Health * To prevent worsening of your condition and complications * To maintain your health at the optimal level Directions to Meet Your Goals Take your medications as prescribed Follow your dietary instruction Follow activity as directed Keep your appointments as scheduled Take your immunizations and boosters as scheduled If your symptoms worsen call your PCP, if no PCP go to Urgent Care Center or Emergency Room Smoking is Dangerous to Your Health. Avoid second hand smoke Call the 24-hour hour crisis hotline for domestic abuse at Lennox Esquivel MD Feb 05, 2018 09:06
--- NOTE | 2018-02-05 10:15 | RADRPT ---
EXAM DATE/TIME: 02/05/2018 09:15 [place] COMPARISON: CHEST SINGLE AP, January 31, 2018, 21:26. INDICATIONS : S/p pacemaker MEDICAL HISTORY : Hypertension. SURGICAL HISTORY : loop recorder ENCOUNTER: Initial ACUITY: 4 - 6 days PAIN SCORE: 0/10 LOCATION: Bilateral chest FINDINGS: There is minimal placement of pacer leads overlying right atrium and right ventricle. No pneumothorax . No effusion. Heart size upper limits normal. CONCLUSION: 1. Status post pacer placement. No pneumothorax. Alon Moraes MD on February 05, 2018 at 10:12 Board Certified Radiologist. This report was verified electronically.
--- NOTE | 2018-02-05 10:38 | HHI.DS ---
Discharge Summary Admission Date Feb 01, 2018 at 14:32 Discharge Date: Feb 05, 2018 Admitting Diagnosis cardiac dysrhythmia (1) Sinus pause ICD Code: I45.5 - Other specified heart block (2) Cardiac dysrhythmia ICD Code: I49.9 - Cardiac arrhythmia, unspecified Status: Acute Brief History - From Admission Mrs. Medley is a 52-year-old female with a complicated cardiovascular history including recent CVA 2 within the past couple of weeks (follows with Dr. Craft -on Coumadin), asthma with recent respiratory failure requiring BiPAP within the past couple of weeks, coronary artery disease status post stent placement, carotid artery disease status post left carotid endarterectomy, hypertension, and recent acute renal failure who presented to the ER on advice of family development extension specialist for observation admission after 20 second pauses were noted on loop recording. The patient is seen in the CDU and relates her very complicated recent medical history. On 01/10/2018, the patient woke up with a severe headache that was worse than any migraine headache she had previously had. She went to the hospital at [facility] in [place] and she had an MRI that showed a 5 mm brain aneurysm and she also started experience some chest pain while there. She ended up having a cardiac catheterization that only showed vasospasm according to the patient. She was discharged home a couple of days later and was instructed to follow-up with an outpatient neurologist. In the interim, her headache persisted and she went to [facility] and was diagnosed with CVA 2 on a brain MRI done there. She was seen by Dr. Craft, neurologist. She was started on Coumadin. The patient also experienced syncopal episodes and Dr. Craft recommended a loop recorder which was placed about a week ago. Upon review of the loop recording, family development extension specialist Dr. Engle contacted the patient yesterday and advised she come to the hospital for observation admission because of 20 second pauses seen on the recording. Dr. Engle spoke with the ER PA and instructed her to keep the patient n.p.o. for possible pacemaker placement tomorrow. The patient is currently complaining of severe fatigue and generalized edema. Of note, she has been on multiple courses of IV and p.o. corticosteroids and I suspect the steroids are responsible for her generalized edema. Denies chest pain or shortness of breath at this time. Complains of generalized chronic back pain. CBC/BMP: 02/05/18 0411 02/01/18 0946 Significant Findings Laboratory Tests Test 02/02/18 18:05 02/02/18 22:31 02/03/18 10:44 02/03/18 17:00 Activated Partial Thromboplast Time 35.0 SEC (24.3-30.1) 36.8 SEC (24.3-30.1) 51.1 SEC (24.3-30.1) Test 02/03/18 23:15 02/05/18 04:11 Activated Partial Thromboplast Time 55.8 SEC (24.3-30.1) 23.2 SEC (24.3-30.1) Hemoglobin 11.2 GM/DL (11.6-15.3) Hematocrit 34.8 % (35.0-46.0) Mean Corpuscular Volume 79.9 FL (80.0-100.0) Mean Corpuscular Hemoglobin 25.8 PG (27.0-34.0) PE at Discharge AAox3 Tenederness over left chest on palpation Clear lungs BL S1S2 RRR, no MRg no edema in extremities Hospital Course Chest pain at level of insertion much improved and control with oral medications. Denies nausea or vomiting. Was able to sleep well. Pt Condition on Discharge: Stable Discharge Disposition: Discharge Home Discharge Time: <= 30 minutes Discharge Instructions DIET: Follow Instructions for: Heart Healthy Diet Activities you can perform: See Additionl Instruction Activities to Avoid: Lifting/Bending, Strenuous Activity Other Activity Instructions: as per cardiology instructions Keep sling on until told by cardiology Follow up Referrals: Cardiology - 2 Weeks with Chano Fuentes MD New Medications: Cephalexin (Cephalexin) 500 Mg Cap 500 MG PO Q8HR for Infection, #21 CAP Continued Medications: Alprazolam (Xanax) 1 Mg Tab 1 MG PO Q8H PRN for ANXIETY, TAB 0 Refills Cyclobenzaprine (Flexeril) 10 Mg Tab 10 MG PO TID PRN for MUSCLE SPASM, #90 TAB 0 Refills Furosemide (Lasix) 20 Mg Tab 30 MG PO DAILY PRN for SWELLING, #30 TAB 0 Refills Lisinopril (Lisinopril) 20 Mg Tab 20 MG PO DAILY, #30 TAB 0 Refills Loratadine (Claritin) 10 Mg Cap 10 MG PO DAILY for Allergy Management, CAP 0 Refills Oxycodone-Acetaminophen (Percocet) 10-325 mg Tab 1 TAB PO Q4H PRN for PAIN, TAB 0 Refills Warfarin (Warfarin) 2.5 Mg Tab 2.5 MG PO DAILY for Blood Clot Prevention, #30 TAB 0 Refills Lennox Esquivel MD Feb 05, 2018 10:38
[2018-02-05] MEDS ORDERED: PERC10TA27 PO (10:39)
[2018-02-05] MEDS ORDERED: CEPHALEXIN MONOHYDRATE 500 MG CAP PO SCH (14:00)
[2018-02-05] MEDS ORDERED: WARFARIN SOD 2.5 MG TAB PO SCH (16:00)
== END 2018-02-05 11:55 | disposition home or self-care (01) | DRG 243 ==
LOC: NEPC 20:14 → NEDA 23:13 → NEPGCP 02-01 00:51 → OBSVTOIN 02-01 14:32 → N04B 02-03 22:24 → HCIS 02-04 08:52 → HCPC 02-04 19:38
PROVIDERS: ADMIT Hospitalist; ATTEND Hospitalist
PROC: 02HL3JZ Insertion of Pacemaker Lead into Left Ventricle, Percutaneous Approach (ICD-10-PCS; 2018-02-04)
PROC: 02H63JZ Insertion of Pacemaker Lead into Right Atrium, Percutaneous Approach (ICD-10-PCS; 2018-02-04)
PROC: 0JPT02Z Removal of Monitoring Device from Trunk Subcutaneous Tissue and Fascia, Open Approach (ICD-10-PCS; 2018-02-04)
PROC: 0JH606Z Insertion of Pacemaker, Dual Chamber into Chest Subcutaneous Tissue and Fascia, Open Approach (ICD-10-PCS; principal; 2018-02-04 07:30)
DX: I45.5 Other specified heart block (principal); Z68.41 Body mass index [BMI] 40.0-44.9, adult; E66.01 Morbid (severe) obesity due to excess calories; I10 Essential (primary) hypertension; I25.10 Atherosclerotic heart disease of native coronary artery without angina pectoris; Z95.5 Presence of coronary angioplasty implant and graft; I49.9 Cardiac arrhythmia, unspecified; Z86.73 Personal history of transient ischemic attack (TIA), and cerebral infarction without residual deficits; G47.33 Obstructive sleep apnea (adult) (pediatric); D64.9 Anemia, unspecified; Z87.891 Personal history of nicotine dependence; Z79.01 Long term (current) use of anticoagulants
CPT/HCPCS: 33208; 33284; 71045; 80048; 80053; 82550; 83735; 83880; 84484; 85025; 85027; 85610; 85730; 93005; 99285; C1785; C1898; G0378; J0690; J1200; J1644; J2250; J2270; J3010; J3370; J7050; Q9967